=== PATIENT | female | born 1935 | race Two or more races ===

== ENCOUNTER 2018-09-06 14:04 | Emergency (ER) | payer OTHER ==
[~2018-09-06] VITALS: Ht 162.6 cm; Wt 68.0 kg
[2018-09-06] MEDS ORDERED: VITAMIN AND MI1 EACH (14:16)
[2018-09-06] MEDS ORDERED: LEXAPRO5 MG (14:16)
== END 2018-09-06 22:08 | disposition home or self-care (01) ==
LOC: ER 14:04
DX: S80.02XA Contusion of left knee, initial encounter (principal); S80.01XA Contusion of right knee, initial encounter; S70.02XA Contusion of left hip, initial encounter; S70.01XA Contusion of right hip, initial encounter; S29.8XXA Other specified injuries of thorax, initial encounter; S19.89XA Other specified injuries of other specified part of neck, initial encounter; M54.2 Cervicalgia; M54.5 Low back pain; R07.89 Other chest pain; M25.512 Pain in left shoulder; W18.09XA Striking against other object with subsequent fall, initial encounter; Y93.89 Activity, other specified; Y92.814 Boat as the place of occurrence of the external cause; Y99.8 Other external cause status